=== PATIENT | male | born 1980 | race Caucasian/White ===

== ENCOUNTER 2018-10-07 08:50 | Emergency (ER) | payer SELFPAY ==
[~2018-10-07] VITALS: Ht 167.6 cm; Wt 76.1 kg
[2018-10-07 08:59] VITALS: BP 141/88; PULSE 103; RESP 20; Ht 167.6 cm; Wt 76.1 kg
[2018-10-07] MEDS ORDERED: IBUP-1542 PO (11:07)
--- NOTE | 2018-10-07 11:11 | ERD ---
ER Documentation Chief Complaint Chief Complaint Complains of right hand pain with 5th digit swelling HPI 38-year-old male presents with right hand pain and swelling after getting it caught under a mixer while cooking in the kitchen. He has restricted range of motion due to pain but no weakness. He has a remote history of fracture approximately 6 years ago. He has not sought medical care yet and this injury occurred approximately 2 weeks ago. ROS All systems reviewed and are negative except as per history of present illness. Medications Home Meds Active Scripts Ibuprofen* (Motrin*) 600 Mg Tab, 600 MG PO Q6, #20 TAB Prov:KATT SANTIZO MD 10/07/18 Allergies Allergies: Coded Allergies: No Known Allergy (Unverified , 02/06/12) PMhx/Soc Medical and Surgical Hx: pt denies Medical Hx, pt denies Surgical Hx History of Surgery: Yes (APPENDICITIS) Hx Miscellaneous Medical Probl: No (NO MEDICAL PROBLEMS) Hx Alcohol Use: No Hx Substance Use: No Hx Tobacco Use: No Smoking Status: Never smoker FmHx Family History: No diabetes, No coronary disease, No other Physical Exam Vitals Vital Signs Date Temp Pulse Resp B/P (MAP) Pulse Ox O2 O2 Flow FiO2 Time Delivery Rate 10/07/18 99.2 103 20 141/88 98 08:59 (105) Physical Exam Const: No acute distress Head: Atraumatic Eyes: Normal Conjunctiva ENT: Normal External Ears, Nose and Mouth. Neck: Full range of motion. No meningismus. Resp: Clear to auscultation bilaterally Cardio: Regular rate and rhythm, no murmurs Abd: Soft, non tender, non distended. Normal bowel sounds Skin: No petechiae or rashes Back: No midline or flank tenderness Ext: No cyanosis, or edema. Tenderness and swelling around the right midshaft fifth metacarpal area. No restricted range of motion, deficits or weakness. No erythema or warmth or bleeding. Neur: Awake and alert Psych: Normal Mood and Affect Procedures/MDM X-ray right hand 3V interpreted by me: Scaphoid: Normal Bones: Remote healing fracture of the right midshaft fifth metacarpal. Joints: No dislocation Foreign body: None. Patient-remote healing fracture of the right fifth midshaft metacarpal. Presents with subacute fracture of the right fifth metacarpal without significant displacement, was placed in a right hand ulnar gutter splint was neurovascular intact to the splint. Patient was discharged home with primary care and orthopedic follow-up. Fracture appears almost completely healed on x- ray however. There is no signs of deficits, ischemia, infection, instability or significant displacement. Patient was advised he likely needs 1-2 more weeks of immobilization and avoid new injury. No signs of infection but patient to return for fevers, redness, new worsening symptoms. He will referred to local [facility] for primary care and orthopedic follow-up as needed. Departure Diagnosis: Primary Impression: Fracture of hand Encounter type: initial encounter Fracture type: closed Laterality: right Qualified Codes: S62.91XA - Unspecified fracture of right wrist and hand, initial encounter for closed fracture Additional Impression: Injury of hand Encounter type: initial encounter Laterality: right Qualified Codes: S69.91XA - Unspecified injury of right wrist, hand and finger(s), initial encounter Condition: Stable Patient Instructions: Treating Hand Fractures Referrals: [facility] YOU HAVE RECEIVED A MEDICAL SCREENING EXAM AND THE RESULTS INDICATE THAT YOU DO NOT HAVE A CONDITION THAT REQUIRES URGENT TREATMENT IN THE EMERGENCY DEPARTMENT. FURTHER EVALUATION AND TREATMENT OF YOUR CONDITION CAN WAIT UNTIL YOU ARE SEEN I N YOUR DOCTORS OFFICE WITHIN THE NEXT 1-2 DAYS. IT IS YOUR RESPONSIBILITY TO MAKE AN APPOINTMENT FOR FOLOW-UP CARE. IF YOU HAVE A PRIMARY DOCTOR --you should call your primary doctor and schedule an appointment IF YOU DO NOT HAVE A PRIMARY DOCTOR YOU CAN CALL OUR PHYSICIAN REFERRAL HOTLINE AT IF YOU CAN NOT AFFORD TO SEE A PHYSICIAN YOU CAN CHOSE FROM THE FOLLOWING [facility] [address] [facility]. [facility] [address] [facility] [place] [address] [facility] [facility] [address] [facility]. [facility] [address] [facility]. [address] Additional Instructions: hay un fractura caitlin esta curando y no es nueva. solo tatamiento es no usando para 2 semanas mas. T [facility] al [facility] doctor/ specialista para mas evaluacon en el proximo semana. posiblemente necesita autorizado de brantley doctor primario para specialista. Regresa para fiebre, o mas o nueva simptomas. KATT SANTIZO MD Oct 07, 2018 11:11
== END 2018-10-07 11:19 | disposition home or self-care (01) ==
LOC: FTE 08:50
DX: S62.306A Unspecified fracture of fifth metacarpal bone, right hand, initial encounter for closed fracture (principal); W26.8XXA Contact with other sharp object(s), not elsewhere classified, initial encounter; Y92.000 Kitchen of unspecified non-institutional (private) residence as the place of occurrence of the external cause